=== PATIENT | male | born 1950 | race Caucasian/White ===

== ENCOUNTER 2023-10-13 12:58 | Emergency (ER) | payer OTHER, SELFPAY ==
[2023-10-13 13:02] VITALS: BP 149/62
[2023-10-13 13:47] VITALS: BMI 36.0
--- NOTE | 2023-10-13 13:48 | ED.SKININJ ---
HPI-Injury
<Miky Melendez PA-C - Last Filed: 10/13/23 17:59>
General
Chief Complaint: Eye Problems
Source: patient
Exam Limitations: none
Time Seen by Provider: 10/13/23 13:33
Travel History
Have you had any contact with someone who has COVID-19?: No
Do you have any symptoms of coronavirus? Fever > 100 degrees, chills, cough, shortness of breath, sore throat, loss of taste or smell, muscle aches, or headache?: No
History of Present Illness-Injury
Initial Injury comments:
72 year old male presents with intermittent swelling of left eye that worsened today. He has had 2 other episodes of the same this week. He thought it was an allergy mediated process. He took 100 mg of Benadryl almost 3 hours prior to my exam and
noted no relief. He notes a swollen but denies significant pain. HE is unable to open the eye. No headache. No vomiting. He has history of IDDM. No other complaints at this time.
Past History
<Miky Melendez PA-C - Last Filed: 10/13/23 17:59>
Past History
ED Past Medical History: Asthma, HTN, Hypercholesterolemia and NIDDM
ED Past Surgical History: Appendectomy, Cardiac (Stents X 3) and Orthopedic (Bilateral total knee replacement)
Social History
Tobacco: Non-smoker
Alcohol: Occasional
Drug: None
Personal:
Living: with family
Phy Exam
<Miky Melendez PA-C - Last Filed: 10/13/23 17:59>
Physical Exam
Physical Exam:
General:Well appearing male, NAD
HEENT: Normocephalic. Left eye with periorbital swelling. The eye is swollen shut. There is a mild amount of discharge. When the eyelashes are pulled apart there is significant mount of chemosis noted on the surface of the eye. Extraocular's
are intact. There is no significant tenderness in the periorbital region
Heart: Regular rate and rhythm no murmurs
Lungs: Clear no wheeze or rales
Extremities: No cyanosis
Skin: See above, no other rashes
Course
<Miky Melendez PA-C - Last Filed: 10/13/23 17:59>
Orders/Labs/Results
Orders:
Orders
10/13/23 13:44
CT Orbits W/o Iv Contrast Urgent
Reason For Exam: left eye swelling
Dexamethasone Sod Phosphate [Decadron] 10 mg IV NOW STA
Famotidine [Pepcid] 20 mg IV NOW STA
10/13/23 13:54
Complete Blood Count/With Diff Urgent
Comprehensive Metabolic Panel Urgent
10/13/23 17:09
Ampicillin/Sulbactam 3 G [Unasyn] 3 gm 0.9% Sodium Chloride 100 ml [Nss] 100 ml IV NOW
Abnormal Lab Results
10/13/23
13:54
WBC 11.6 H 10^3/uL
(4.8-10.8)
Abs Immat Gran (auto) 0.1 H 10^3/uL
(0-0.05)
Absolute Neuts (auto) 7.0 H 10^3/uL
(1.4-6.5)
Absolute Monos (auto) 1.4 H 10^3/uL
(0.1-0.6)
Absolute Eos (auto) 0.9 H 10^3/uL
(0-0.7)
Lymphocytes % 18.4 L %
(20.5-51.1)
Monocytes % 11.7 H %
(1.7-9.3)
Eosinophils % 7.8 H %
(0-6)
Carbon Dioxide 31 H mmol/L
(22-30)
BUN 26 H mg/dl
(9-20)
10/13/23 13:54
10/13/23 13:54
Vital Signs
Initial and Last Documented VS:
Initial Vital Signs
Temp Pulse Resp BP Pulse Ox
97.9 F 64 20 149/62 95
10/13/23 13:02 10/13/23 13:02 10/13/23 13:02 10/13/23 13:02 10/13/23 13:02
Last Documented Vital Signs
Temp Pulse Resp BP Pulse Ox
97.9 F 65 19 112/59 96
10/13/23 13:02 10/13/23 15:00 10/13/23 15:00 10/13/23 15:00 10/13/23 15:00
<Ferdinand Greene, DO - Last Filed: 10/13/23 17:02>
Orders/Labs/Results
Orders:
Orders
10/13/23 13:44
CT Orbits W/o Iv Contrast Urgent
Reason For Exam: left eye swelling
Dexamethasone Sod Phosphate [Decadron] 10 mg IV NOW STA
Famotidine [Pepcid] 20 mg IV NOW STA
10/13/23 13:54
Complete Blood Count/With Diff Urgent
Comprehensive Metabolic Panel Urgent
10/13/23 17:09
Ampicillin/Sulbactam 3 G [Unasyn] 3 gm 0.9% Sodium Chloride 100 ml [Nss] 100 ml IV NOW
Abnormal Lab Results
10/13/23
13:54
WBC 11.6 H 10^3/uL
(4.8-10.8)
Abs Immat Gran (auto) 0.1 H 10^3/uL
(0-0.05)
Absolute Neuts (auto) 7.0 H 10^3/uL
(1.4-6.5)
Absolute Monos (auto) 1.4 H 10^3/uL
(0.1-0.6)
Absolute Eos (auto) 0.9 H 10^3/uL
(0-0.7)
Lymphocytes % 18.4 L %
(20.5-51.1)
Monocytes % 11.7 H %
(1.7-9.3)
Eosinophils % 7.8 H %
(0-6)
Carbon Dioxide 31 H mmol/L
(22-30)
BUN 26 H mg/dl
(9-20)
10/13/23 13:54
10/13/23 13:54
Vital Signs
Initial and Last Documented VS:
Initial Vital Signs
Temp Pulse Resp BP Pulse Ox
97.9 F 64 20 149/62 95
10/13/23 13:02 10/13/23 13:02 10/13/23 13:02 10/13/23 13:02 10/13/23 13:02
Last Documented Vital Signs
Temp Pulse Resp BP Pulse Ox
97.9 F 65 19 112/59 96
10/13/23 13:02 10/13/23 15:00 10/13/23 15:00 10/13/23 15:00 10/13/23 15:00
<Miky Melendez PA-C - Last Filed: 10/13/23 17:59>
MDM/Problems Addressed
Differential Diagnosis Includes:
Left eye swelling. Question allergy mediated process versus infectious process. Consider periorbital cellulitis or abscess.
He has insulin-dependent diabetes which is affecting today's care.
This has been a recurrent issue over the past week. Patient has already taken 100 mg of Benadryl without significant relief. Will try Decadron and Pepcid but CT with IV contrast pending
<Miky Melendez PA-C - Last Filed: 10/13/23 17:59>
*Critical Care Note
Total Time (30-74mins, 75-104mins- exclusive of procedures): Not Applicable
<Miky Melendez PA-C - Last Filed: 10/13/23 17:59>
Update Note
Update Note:
CT demonstrates evidence of preseptal cellulitis. Reassessment provide the eye is improved he is able to open on his own and move it without any significant pain with extraocular motion testing. Considered admission however patient does note
improvement. We gave dose of IV Unasyn but will send home on Augmentin. No obvious reaction to the Augmentin here as penicillin was listed as a childhood allergy
ED Attending Note
<Miky Melendez PA-C - Last Filed: 10/13/23 17:59>
-
Portions of this chart may have been created with voice recognition software.� Occasional wrong word or��sound alike� substitutions may have occurred due to the inherent limitations of voice recognition software.
<Ferdinand Greene DO - Last Filed: 10/13/23 17:02>
ED Attending Note
Patient seen and examined by attending physician: Yes
I performed the substantive portion of visit, reviewed & personally made and approve the management plan that is documented in note by myself or LUIS M.: Yes
I performed a history and physical exam of patient and discussed management with resident, I reviewed resident's note and agree with documented findings and plan of care.: Yes
ED Attending Note:
I evaluated the patient at bedside. There is evidence for periorbital cellulitis. I do not have strong suspicion for orbital cellulitis as the patient has no pain with extraocular muscle movement. He is afebrile. Minimal leukocytosis is noted.
He does report overall improvement after steroids were given. Will hold off on further steroids as he is a diabetic. Will try antibiotics. Although penicillins are listed as a allergy�he is not sure if he truly has an allergy and was told this
when he was a child.
Discharge Plan
Departure
Patient Disposition: Home (Routine Discharge)
Date of Disposition: 10/13/23
Time of Disposition: 17:57
Patient with high blood pressure during this ER visit?: No
Discharge Problem:
Cellulitis
Instructions: Cellulitis around the eye
Prescriptions:
New
amoxicillin-pot clavulanate 875-125 mg tablet
1 tab PO BID Qty: 14 0RF
No Action
multivitamin Tablet
1 tab PO DAILY
fluticasone propion-salmeterol 250-50 mcg/dose Blister With Device
1 inh INHALATION R HS
cetirizine [Zyrtec] 10 mg Tablet
10 mg PO DAILY
clopidogrel 75 mg Tablet
75 mg PO NOON
omeprazole 40 mg Capsule,Delayed Release(Dr/Ec)
40 mg PO BID
simvastatin 40 mg Tablet
40 mg PO HS
ropinirole 2 mg Tablet
2 mg PO BID@1200,2000
ferrous sulfate 325 mg (65 mg iron) Tablet
325 mg PO NOON
lisinopril 5 mg Tablet
5 mg PO QPM
furosemide [Lasix] 20 mg Tablet
20 mg PO Q48H
atenolol 50 mg Tablet
50 mg PO DAILY
ezetimibe 10 mg Tablet
10 mg PO DAILY
insulin aspart U-100 100 unit/mL (3 mL) Insulin Pen
5 unit SC DAILY
insulin aspart U-100 100 unit/mL (3 mL) Insulin Pen
8 unit SC DAILY@1200
insulin aspart U-100 100 unit/mL (3 mL) Insulin Pen
10 unit SC QPM
Levemir U-100 Insulin 100 unit/mL Solution
50 unit SC HS
Jardiance 10 mg Tablet
10 mg PO DAILY
acetaminophen [Tylenol] 325 mg Tablet
650 mg PO Q4HPRN PRN (Reason: mild pain)
aspirin 81 mg Tablet,Delayed Release (Dr/Ec)
81 mg PO DAILY
olopatadine 0.1 % Drops
1 drp BOTH EYES BID
albuterol sulfate [ProAir HFA] 90 mcg/actuation Hfa Aerosol Inhaler
2 puff INHALATION R Q6HPRN PRN (Reason: sob)
Referrals:
Toño Huthcins MD [Family Provider] -
Activity Restrictions/Additional Instructions:
Continue with cool compresses. Take antibiotics as directed. Please return here for increasing swelling pain fever or vision change otherwise follow-up with family doctor.
Interventions
Interventions:
*Risk Screen - Suicide Last Done: 10/13/23 13:02
*General Assessment Last Done: 10/13/23 13:02
*Neglect/Abuse Screening Last Done: 10/13/23 13:02
ED- Fall Risk Assessment Last Done: 10/13/23 13:47
*ED COVID-19 Vaccine History Last Done: 10/13/23 13:47
Discharge Date and Time
Print Language: CYPRIOT
[2023-10-13] MEDS: DECADRON 10 MG IV (13:59)
[2023-10-13] MEDS: PEPCID 20 MG IV (13:59)
[2023-10-13 14:02] LABS: % Basophils 1.3 % (0-2); % Eosinophils 7.8 % (0-6); % Immature Granulocytes 0.5 % (0-0.5); % Lymphocytes 18.4 % (20.5-51.1); % Monocytes 11.7 % (1.7-9.3); % Neutrophils 60.3 % (42.2-75.2); Absolute Basophils 0.2 10^3/uL (0-0.2); Absolute Eosinophils 0.9 10^3/uL (0-0.7); Absolute Immature Granulocytes 0.1 10^3/uL (0-0.05); Absolute Lymphocytes 2.1 10^3/uL (1.2-3.4); Absolute Monocytes 1.4 10^3/uL (0.1-0.6); Hematocrit 42.3 % (39.0-52.0); Mean Corp Hgb Conc. 33.1 g/dL (33.0-37.0); Mean Corpuscular Hgb 29.3 pg (27.0-31.0); Mean Corpuscular Volume 88.5 fL (80.0-94.0); Mean Platelet Volume 9.6 fL (7.4-10.4); Nucleated Red Blood Cells % 0 % (-); Platelet Count 323 10^3/uL (130-400); Red Blood Cell Count 4.78 10^6/uL (4.70-6.10); Red Cell Dist. Width 12.9 % (11.5-14.5); White Blood Cell Count 11.6 10^3/uL (4.8-10.8)
[2023-10-13 14:05] VITALS: BP 125/42
[2023-10-13 14:08] VITALS: BP 125/42
[2023-10-13 14:12] LABS: ALT (SGPT) 30 U/L (0-50); AST (SGOT) 33 U/L (17-59); Albumin 4.1 g/dl (3.5-5.0); Alkaline Phosphatase 54 U/L (38-126); Blood Urea Nitrogen 26 mg/dl (9-20); Calcium 9.7 mg/dl (8.4-10.2); Carbon Dioxide 31 mmol/L (22-30); Chloride 103 mmol/L (98-107); Estimated Creatinine Clearance 65 ml/min; Glucose 76 mg/dl (70-99); Potassium 4.4 mmol/L (3.5-5.1); Sodium 139 mmol/L (135-145); Total Bilirubin 0.4 mg/dl (0.2-1.3); Total Protein 6.8 g/dl (6.3-8.2); eGFR > 60.00
[2023-10-13 15:00] VITALS: BP 112/59
[2023-10-13] MEDS: UNASYN IV (17:36)
[2023-10-13 17:42] VITALS: BP 127/59
[2023-10-13 18:00] VITALS: BP 143/58
== END 2023-10-13 18:20 | disposition home or self-care (01) ==
LOC: EMR 12:58
PROVIDERS: Physician Assistant; EMERGENCY PHYSICIAN Emergency Medicine; FAMILY PHYSICIAN Internal Medicine
DX: L03.211 Cellulitis of face (principal); J45.909 Unspecified asthma, uncomplicated; I10 Essential (primary) hypertension; E78.00 Pure hypercholesterolemia, unspecified; E11.9 Type 2 diabetes mellitus without complications
CPT/HCPCS: 99284; 96374; 96375; 70480; 80053; 85025

== ENCOUNTER 2024-08-06 13:20 | Emergency (ER) | payer SELFPAY ==
[2024-08-06] VITALS (9 sets, daily range): BP systolic 90–143; BP diastolic 58–122; PULSE 77–88
[2024-08-06 13:34] LABS: Glucose - Point of Care 96 mg/dl (70-99)
[2024-08-06 14:49] LABS: % Basophils 0.9 % (0-2); % Eosinophils 6.4 % (0-6); % Immature Granulocytes 0.5 % (0-0.5); % Lymphocytes 16.1 % (20.5-51.1); % Monocytes 9.4 % (1.7-9.3); % Neutrophils 66.7 % (42.2-75.2); Absolute Basophils 0.1 10^3/uL (0-0.2); Absolute Eosinophils 0.8 10^3/uL (0-0.7); Absolute Immature Granulocytes 0.1 10^3/uL (0-0.05); Absolute Monocytes 1.2 10^3/uL (0.1-0.6); Absolute Neutrophils 8.3 10^3/uL (1.4-6.5); Hemoglobin 14.5 g/dL (13.0-18.0); Mean Corpuscular Hgb 29.8 pg (27.0-31.0); Mean Corpuscular Volume 90.3 fL (80.0-94.0); Mean Platelet Volume 9.2 fL (7.4-10.4); Nucleated Red Blood Cells % 0 % (-); Platelet Count 353 10^3/uL (130-400); Red Blood Cell Count 4.87 10^6/uL (4.70-6.10); Red Cell Dist. Width 12.9 % (11.5-14.5); White Blood Cell Count 12.4 10^3/uL (4.8-10.8)
[2024-08-06 14:59] LABS: ALT (SGPT) 30 U/L (0-50); AST (SGOT) 28 U/L (17-59); Albumin 4.2 g/dl (3.5-5.0); Alkaline Phosphatase 52 U/L (38-126); Blood Urea Nitrogen 16 mg/dl (9-20); Calcium 9.8 mg/dl (8.4-10.2); Carbon Dioxide 27 mmol/L (22-30); Chloride 100 mmol/L (98-107); Glucose 105 mg/dl (70-99); Potassium 4.6 mmol/L (3.5-5.1); Sodium 135 mmol/L (135-145); Total Bilirubin 0.7 mg/dl (0.2-1.3); Total Protein 6.8 g/dl (6.3-8.2); eGFR > 60.00
[2024-08-06 15:09] LABS: Troponin I < 0.012 ng/ml
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
[2024-08-06 15:52] LABS: Glucose - Point of Care 109 mg/dl (70-99)
[2024-08-06 16:06] LABS: D-Dimer 0.43 ug/mlFEU (0.00-0.50)
[2024-08-06] MEDS: NSS 500 IV (16:11)
[2024-08-06] MEDS: REQUIP 2 MG PO (16:11)
== END 2024-08-06 19:27 | disposition home or self-care (01) ==
LOC: EMR 13:20
PROVIDERS: Emergency Medicine; EMERGENCY PHYSICIAN Emergency Medicine
DX: R55 Syncope and collapse (principal); J45.909 Unspecified asthma, uncomplicated; I10 Essential (primary) hypertension; E78.00 Pure hypercholesterolemia, unspecified; E11.9 Type 2 diabetes mellitus without complications; Z79.85 Long-term (current) use of injectable non-insulin antidiabetic drugs; Z90.49 Acquired absence of other specified parts of digestive tract; Z95.5 Presence of coronary angioplasty implant and graft; Z96.653 Presence of artificial knee joint, bilateral
CPT/HCPCS: 99284; 96360; 70450; 80053; 82962; 84484; 85025; 85379; 93005